=== PATIENT | female | born 1990 | race Caucasian/White ===

== ENCOUNTER 2020-05-31 04:12 | Emergency (ER) | payer SELFPAY ==
[2020-05-31] MEDS ORDERED: Acetaminophen 325 MG Tab PO ONE (05:04)
[2020-05-31] MEDS ORDERED: Ibuprofen 600 MG Tab PO ONE (05:04)
--- NOTE | 2020-05-31 05:18 | EDM.PDOC ---
ED HPI GENERAL MEDICAL PROBLEM - General Chief Complaint: ENT Problem Stated Complaint: EAR PAIN Time Seen by Provider: 05/31/20 04:53 Source of Information: Reports: Patient, RN Notes Reviewed - History of Present Illness INITIAL COMMENTS - FREE TEXT/NARRATIVE: 29 yr old female with severe pain R ear. Has been swimming with her daughter. Started last evening and has gotten much worse during the night. No sore throat, sinus problems, fever or chills. Ear Pain Score (Numeric/FACES): 9 - Related Data Allergies Allergy/AdvReac Type Severity Reaction Status Date / Time No Known Allergies Allergy Verified 05/31/20 04:26 Home Meds: Home Meds Amoxicillin 500 mg PO TID #14 tab 05/31/20 [Rx] Hydrocodone/Acetaminophen [Plano 5-325 Tablet] 1 each PO Q6HR PRN #7 tablet 05/31/20 [Rx] Past Medical History - Past Health History Medical/Surgical History: Denies Medical/Surgical History Social & Family History - Tobacco Use Smoking Status *Q: Current Every Day Smoker Years of Tobacco use: 10 Packs/Tins Daily: 0.2 ED ROS ENT - Review of Systems Review Of Systems: See Below Constitutional: Denies: Fever, Chills HEENT: Reports: Ear Pain. Denies: Ear Discharge, Sinus Problem, Throat Pain Respiratory: Denies: Cough Cardiovascular: Denies: Chest Pain GI/Abdominal: Denies: Nausea, Vomiting Musculoskeletal: Reports: No Symptoms Skin: Reports: No Symptoms Neurological: Reports: No Symptoms ED EXAM, ENT - Physical Exam Exam: See Below General Appearance: Alert, Moderate Distress Eye Exam: Bilateral Eye: PERRL Ears: Auricular Tenderness, Canal Swelling (mild), TM Dullness Nose: Normal Inspection Mouth/Throat: Normal Inspection Head: Atraumatic Neck: Supple. No: Lymphadenopathy (L), Lymphadenopathy (R) Respiratory/Chest: No Respiratory Distress Neurological: Alert, Oriented, No Motor/Sensory Deficits Skin: Warm, Dry, Normal Color Course - Vital Signs Last Recorded V/S: Last Vital Signs Temp 97.0 F 05/31/20 04:24 Pulse 79 05/31/20 04:24 Resp 16 05/31/20 04:24 BP 107/99 H 05/31/20 04:24 Pulse Ox 99 05/31/20 04:24 - Orders/Labs/Meds Meds: Medications Discontinued Medications Generic Name Dose Route Start Last Admin Trade Name Robbie PRN Reason Stop Dose Admin Acetaminophen 975 mg 05/31/20 05:04 05/31/20 05:16 Tylenol PO 05/31/20 05:05 975 mg NOW ONE Administration Ibuprofen 600 mg 05/31/20 05:04 05/31/20 05:16 Motrin PO 05/31/20 05:05 600 mg ONETIME ONE Administration Departure - Departure Time of Disposition: 05:11 Disposition: Home, Self-Care 01 Condition: Fair Clinical Impression: Otitis externa Qualifiers: Otitis externa type: swimmer's ear Chronicity: acute Laterality: right Qualified Code(s): H60.331 - Swimmer's ear, right ear - Discharge Information Prescriptions: Amoxicillin 500 mg PO TID #14 tab Hydrocodone/Acetaminophen [Plano 5-325 Tablet] 1 each PO Q6HR PRN #7 tablet PRN Reason: Pain Instructions: Otitis Externa Forms: ED Department Discharge Additional Instructions: cipro antibioitic 2 drops 3 times daily R ear for 1 week. No more swimming. Ty lenol or ibuprofen for mild to moderate pain or hydrocodone if needed for severe pain. Do not drive when taking hydrocodone. Amoxicillin 500 mg 3 times daily for 5 days or until gone. Sepsis Event Note (ED) - Evaluation Sepsis Screening Result: No Definite Risk - Focused Exam Vital Signs: Vital Signs Temp Pulse Resp BP Pulse Ox 05/31/20 04:24 97.0 F 79 16 107/99 H 99
== END 2020-05-31 05:30 | disposition home or self-care (01) ==
LOC: JD.ED 04:12
DX: H60.331 Swimmer's ear, right ear (principal); F17.210 Nicotine dependence, cigarettes, uncomplicated
CPT/HCPCS: 99282; A9270